=== PATIENT | male | born 1955 | race Caucasian/White ===

== ENCOUNTER 2017-07-11 06:32 | Emergency (ER) | payer MEDICAID, OTHER ==
[2017-07-11 06:36] VITALS: BP 144/83; PULSE 60; RESP 16; TEMP 97.6; O2SAT 96
--- NOTE | 2017-07-11 07:56 | C.PDOC ---
History Of Present Illness 61 y/o male came to ED c/o not feeling well for 3 weeks after he was sick with flu-like symptoms. Patient c/o generalized weakness, bodyaches, low back pain, poor appetite. Time Seen by Provider: 07/11/17 07:31 Chief Complaint (Nursing): Back Pain History Per: Patient History/Exam Limitations: no limitations Onset/Duration Of Symptoms: Days Current Symptoms Are (Timing): Still Present Severity: Moderate Past Medical History Reviewed: Historical Data, Nursing Documentation, Vital Signs Vital Signs: Last Vital Signs Temp 97.6 F 07/11/17 06:34 Pulse 60 07/11/17 06:34 Resp 16 07/11/17 06:34 BP 144/83 07/11/17 06:34 Pulse Ox 96 07/11/17 10:30 - Medical History PMH: Asthma, HTN, Malignancy ([place]) Other Surgeries: Hx of surgeries Family History: States: No Known Family Hx - Social History Hx Tobacco Use: Yes Hx Alcohol Use: No Hx Substance Use: No - Immunization History Hx Tetanus Toxoid Vaccination: No Hx Influenza Vaccination: No Hx Pneumococcal Vaccination: No Review Of Systems Except As Marked, All Systems Reviewed And Found Negative. Constitutional: Positive for: Weakness, Malaise. Negative for: Fever, Chills Musculoskeletal: Positive for: Back Pain (low back pain) Physical Exam - Physical Exam Appears: Non-toxic, No Acute Distress Skin: Normal Color, Warm Head: Atraumatic, Normacephalic Eye(s): bilateral: Normal Inspection Nose: Normal Oral Mucosa: Moist Back: Paraspinal Tenderness (LS paraspinal tenderness) Extremity: Normal ROM, No Calf Tenderness Neurological/Psych: Oriented x3, Normal Speech, Normal Motor, Normal Sensation ED Course And Treatment O2 Sat by Pulse Oximetry: 96 (RA) Pulse Ox Interpretation: Normal Progress Note: As per RN, patient eloped right after physical exam. Disposition - Disposition Disposition: ELOPEMENT - ER ONLY Disposition Time: 07:56 Condition: UNKNOWN Forms: [facility] (Monegasque) - Clinical Impression Clinical Impression: Low back pain - PA / CHIEF OF SAFETY AND PROTECTION / Resident Statement MD/DO has reviewed & agrees with the documentation as recorded. - Scribe Statement The provider has reviewed the documentation as recorded by the Kelly Valerio Provider Attestation All medical record entries made by the Scribe were at my direction and personally dictated by me. I have reviewed the chart and agree that the record accurately reflects my personal performance of the history, physical exam, medical decision making, and the department course for this patient. I have also personally directed, reviewed, and agree with the discharge instructions and disposition.
== END 2017-07-11 07:31 | disposition left against medical advice (07) ==
LOC: C.ER 06:32
DX: M54.5 Low back pain (principal)